=== PATIENT | male | born 1965 | race Caucasian/White ===

== ENCOUNTER 2018-07-17 14:42 | Outpatient (CLI) | payer OTHER ==
--- NOTE | 2018-07-17 15:50 | CT ---
NONCONTRAST CT CERVICAL SPINE: Date: 07/17/18 HISTORY: Acute neck pain and hand numbness. Patient complains of bilateral arm numbness. COMPARISON: None available. TECHNIQUE: Contiguous axial CT images are obtained through the cervical spine from the skull base to the T1-2 le darrick. Sagittal and coronal reformatted images are provided. FINDINGS: No fracture or subluxation is seen involving the cervical spine. There is rotation at the C1-2 articu lation, probably related to patient's head rotated to the left as opposed to rotary subluxation. The interspinous distances are within normal limits. There are prominent facet hypertrophic changes at the C2-3 level with mild left-sided neural foramina l narrowing. There is prominent uncinate process hypertrophy at the C3-4 level resulting in moderate to severe rig ht-sided neural foraminal narrowing due to bony encroachment. Left neural foramen is patent at this l evel. At the C5-6 level, there is loss of intervertebral disc height with prominent osteophytes seen both a nteriorly, as well as posteriorly. Posterior osteophyte formation results in narrowing of the ventral subarachnoid space and suggested flattening of the anterior aspect of the spinal cord. Neural forami na do appear patent at this level. There is left convex curvature of the cervical spine which may be related to positioning. The prevertebral soft tissues are within normal limits. Emphysematous changes are seen in each lung apex. IMPRESSION: 1. Degenerative changes within the cervical spine as described above. 2. No fracture or subluxation involving the cervical spine. POS: GENE
== END 2018-07-17 14:43 | disposition home or self-care (01) ==
LOC: BICCT 14:42
PROVIDERS: ATTEND Family Medicine
DX: M54.2 Cervicalgia (principal); M47.812 Spondylosis without myelopathy or radiculopathy, cervical region
CPT/HCPCS: 72125

== ENCOUNTER 2018-10-29 10:27 | Outpatient (CLI) | payer OTHER ==
--- NOTE | 2018-10-29 13:31 | MRI ---
MRI CERVICAL SPINE WITHOUT CONTRAST: HISTORY: M47.12, cervical spondylosis with myelopathy. COMPARISON: Comparison is made with CT cervical spine of 07/17/2018. FINDINGS: Cerebellar tonsils terminate just below the foramen magnum. No marrow infiltrative process. No cervical adenopathy. Levels are as follows: C2-3: Disk desiccation. There is moderate facet arthropathy on the left and moderate to severe on t he right. There is 1-2 mm of anterolisthesis. Moderate right uncinate process hypertrophy. Moderat e to severe right neural foraminal narrowing. C3-4: Disk desiccation. Circumferential disk-osteophyte complex. Severe right facet arthropathy. Severe right neural foraminal narrowing. Mild left neural foraminal narrowing. C4-5: Circumferential disk-osteophyte complex. Some mild effacement of the ventral CSF space. Ther e is severe right facet arthropathy and mild left facet arthropathy. There is severe right neural fo raminal narrowing. C5-6: There is a large circumferential disk-osteophyte complex. This abuts the cord. The spinal ca nal is n arrowed to approximately 7 mm. Mild left and severe right facet arthropathy. Severe right neural foraminal narrowing. Moderate left neural foraminal narrowing. C6-7: Disk desiccation. Mild height loss. There is left uncinate process hypertrophy. Mild left n eural foraminal narrowing. C7-T1: Mild anterior degenerative disk space height loss. Moderate left and moderate to severe righ t facet arthropathy. Moderate right neural foraminal narrowing. IMPRESSION: Multilevel neural foraminal and spinal canal narrowing as described. POS: CET
== END 2018-10-29 10:28 | disposition home or self-care (01) ==
LOC: BICMRI 10:27
PROVIDERS: ATTEND Neurological Surgery
DX: M47.12 Other spondylosis with myelopathy, cervical region (principal); M48.02 Spinal stenosis, cervical region; M48.03 Spinal stenosis, cervicothoracic region
CPT/HCPCS: 72141

== ENCOUNTER 2019-01-20 13:19 | Outpatient (CLI) | payer OTHER ==
[2019-01-20 14:47] LABS: Mean Corpuscular HGB CONC 35.7 g/dL (32.0-36.0); Mean Corpuscular Volume 89.6 fL (78.0-98.0); Mean Platelet Volume 7.8 fL (7.4-10.4); Platelet Count 223 thou/uL (130-400); RBC Distribution Width 11.8 % (11.5-14.5); Red Blood Cell (RBC) Count 4.67 mill/uL (4.70-6.10); White Blood Cell (WBC) Count 8.9 thou/uL (4.8-10.8)
[2019-01-20 15:04] LABS: Anion Gap 12 mmol/L (10-20); BUN (Urea Nitrogen) 8 mg/dL (8.4-25.7); Calc. Creatinine Clearance 0 mL/min (70-130); Calcium 9.3 mg/dL (7.8-10.44); Carbon Dioxide 26 mmol/L (22-29); Chloride 104 mmol/L (98-107); Estimated GFR-MDRD Greater than 90; Glucose 86 mg/dL (70-105); Potassium 3.8 mmol/L (3.5-5.1); Sodium 138 mmol/L (136-145)
--- NOTE | 2019-01-20 18:26 | EKG ---
Test Reason : Blood Pressure : / mmHG Vent. Rate : 075 BPM Atrial Rate : 075 BPM P-R Int : 144 ms QRS Dur : 098 ms QT Int : 354 ms P-R-T Axes : 035 066 046 degrees QTc Int : 395 ms Normal sinus rhythm Normal ECG When compared with ECG of 10-JAN-2014 18:19, No significant change was found Confirmed by DR. Homar MANZANARES ([id number]) on 01/20/2019 6:26:20 PM Referred By: ALTAGRACIA Confirmed By:DR. Homar MANZANARES
== END 2019-01-20 13:20 | disposition home or self-care (01) ==
LOC: LABBT 13:19
PROVIDERS: ATTEND Neurological Surgery
DX: Z01.818 Encounter for other preprocedural examination (principal); M54.12 Radiculopathy, cervical region
CPT/HCPCS: 80048; 85027; 93005; 93010

== ENCOUNTER 2019-01-25 08:15 | Day surgery (SDC) | payer OTHER ==
[2019-01-20 13:29] VITALS: BMI 31.6
[2019-01-25] MEDS ORDERED: Fentanyl 100 MCG/2 ML VIAL ONE ×4 (09:09→11:46)
[2019-01-25] MEDS ORDERED: Sodium Chloride 0.9% 10 ML ONE (09:51)
[2019-01-25] MEDS ORDERED: Thrombin 5000 UNITS/5 ML VIAL ONE ×2 (09:51→09:54)
[2019-01-25] MEDS ORDERED: SUGAMMADEX SODIUM 200 MG/2 ML VIAL ONE (09:58)
[2019-01-25] MEDS ORDERED: Midazolam HCl 2 mg/2 ml Vial ONE (09:59)
[2019-01-25] MEDS ORDERED: HYDROmorphone 2 MG/ML VIAL ONE ×2 (11:58→12:39)
--- NOTE | 2019-01-25 12:08 | OP ---
DATE OF PROCEDURE: 01/25/2019 DIRECT CUSTOMER SERVICE REPRESENTATIVE: Bernie Watt PA-C PROCEDURES PERFORMED: Anterior cervical diskectomy C5-C6, interbody arthrodesis, intervertebral biomechanical device, local morselized autograft, demineralized bone matrix, anterior titanium instrumentation C5-C6. DESCRIPTION OF PROCEDURE: The patient was brought to the operating room and intubated. He was rolled in the prone position on gel-filled chest rolls. An incision was made exposing C5 and C6 and the level was confirmed by x-ray. We debrided an extreme anterior osteophytes, placed distraction across the disk space and completely decompressed the intervertebral disk. The bony endplates were then decorticated for the purpose of arthrodesis and appropriate-sized intervertebral biomechanical PEEK device was brought into the field. It was filled with demineralized bone matrix, local morselized autograft, and tapped in place securely at C5-C6. Next, an anterior plate was brought into the field and secured at C5 and C6 using two 14-mm screws at each level. The wound was then extensively irrigated and MAC hemostasis was secured and the wound was closed in anatomic layers. Job ID: [id number]
[2019-01-25] MEDS ORDERED: Dexamethasone 4 mg/ml Vial ONE (12:57)
[2019-01-25] MEDS ORDERED: Naloxone HCl 0.4 mg/ml Vial ONE (13:58)
== END 2019-01-25 16:00 | disposition home or self-care (01) ==
LOC: SDC 08:15
PROVIDERS: ATTEND Neurological Surgery
DX: M48.02 Spinal stenosis, cervical region (principal); M54.12 Radiculopathy, cervical region; Z79.899 Other long term (current) drug therapy
CPT/HCPCS: 76000; C1713; C1776; J0690; J1100; J1170; J2250; J2310; J3010; J3490

== ENCOUNTER 2019-02-16 15:58 | Outpatient (CLI) | payer OTHER ==
--- NOTE | 2019-02-16 16:23 | RAD ---
CERVICAL SPINE SERIES THREE VIEWS: 02/16/19 HISTORY: Follow-up surgery. The patient has undergone an anterior cervical fusion. Placement of plate and screws at the C5-6 leve l. Markers of a disc implant are within the confines of the disc level. Some osteophytic change is se en at C4-5 without significant disc narrowing. IMPRESSION: Postoperative changes of the spine. POS: OFF
== END 2019-02-16 15:59 | disposition home or self-care (01) ==
LOC: TBSIIMAG 15:58
PROVIDERS: ATTEND Neurological Surgery
DX: M54.12 Radiculopathy, cervical region (principal); Z98.890 Other specified postprocedural states
CPT/HCPCS: 72040

== ENCOUNTER 2019-04-15 13:52 | Outpatient (CLI) | payer OTHER ==
--- NOTE | 2019-04-15 14:20 | RAD ---
CERVICAL SPINE 3 VIEWS: DATE: 04/15/2019. COMPARISON: 02/16/2019. HISTORY: Reevaluate cervical spine following surgery, stenosis. FINDINGS: Stable anterior diskectomy and fusion hardware at C5-6. Mild stable anterolisthesis at C2-3 measurin g 2 mm. No acute osseous abnormality appreciated. C1-2 articulation appears normal. IMPRESSION: Stable radiographic appearance of the cervical spine as above. POS: GENE
== END 2019-04-15 13:53 | disposition home or self-care (01) ==
LOC: TBSIIMAG 13:52
PROVIDERS: ATTEND Neurological Surgery
DX: M48.02 Spinal stenosis, cervical region (principal); M54.2 Cervicalgia
CPT/HCPCS: 72040

== ENCOUNTER 2019-07-16 15:29 | Observation (INO) | payer OTHER ==
[2019-07-16 16:03] LABS: #Basophils 0.1 thou/uL (0.0-0.2); #Eosinphils 0.3 thou/uL (0.0-0.7); #Lymphocytes 4.5 thou/uL (1.20-3.40); #Monocytes 0.9 thou/uL (0.11-0.59); #Neutrophils 6.9 thou/uL (1.40-6.50); %Basophils 1.1 % (0.0-1.0); %Eosinophils 2.1 % (0.0-10.0); %Lymphocytes 35.4 % (21.0-51.0); %Monocytes 6.8 % (0.0-10.0); %Neutrophils 54.7 % (42.0-75.0); Hemoglobin 15.8 g/dL (14.0-18.0); Mean Corpuscular Hemoglobin 32.8 pg (27.0-31.0); Mean Corpuscular Volume 93.7 fL (78.0-98.0); Mean Platelet Volume 7.5 fL (7.4-10.4); Platelet Count 263 thou/uL (130-400); Red Blood Cell (RBC) Count 4.81 mill/uL (4.70-6.10); White Blood Cell (WBC) Count 12.6 thou/uL (4.8-10.8)
--- NOTE | 2019-07-16 16:12 | RAD ---
TWO VIEWS OF THE CHEST: 07/16/19 COMPARISON: 05/27/04 HISTORY: Chest pain. FINDINGS: Two views of the chest show a normal sized cardiomediastinal silhouette. There is no evidence of cons olidation, mass, or pleural effusion. Degenerative changes and postsurgical changes are seen in the s pine. There is a chronic wedge compression fracture of the lower thoracic vertebral body. IMPRESSION: No evidence of acute cardiopulmonary disease. POS: TPC
[2019-07-16 16:30] LABS: ALT (SGPT) 26 U/L (8-55); AST (SGOT) 18 U/L (5-34); Albumin 4.5 g/dL (3.5-5.0); Alkaline Phosphatase 107 U/L (40-110); Anion Gap 13 mmol/L (10-20); BUN (Urea Nitrogen) 13 mg/dL (8.4-25.7); Bilirubin, Total 0.4 mg/dL (0.2-1.2); CK (CPK) 189 U/L (30-200); Calc. Creatinine Clearance 0 mL/min (70-130); Calcium 9.2 mg/dL (7.8-10.44); Carbon Dioxide 27 mmol/L (22-29); Chloride 104 mmol/L (98-107); Estimated GFR-MDRD 85; Globulin 2.7 g/dL (2.4-3.5); Glucose 100 mg/dL (70-105); Potassium 3.9 mmol/L (3.5-5.1); Protein, Total 7.2 g/dL (6.0-8.3); Sodium 140 mmol/L (136-145)
[2019-07-16] MEDS ORDERED: Nitroglycerin 2% Ointment 1 INCH/1 GM Packet ONE (17:12)
[2019-07-16] MEDS ORDERED: Aspirin Chewable 81 MG TAB ONE (17:12)
--- NOTE | 2019-07-16 18:21 | PDOC.EVN ---
Addendum - Attending - Attending Attestation Date/Time: 07/16/19 [id number] I personally evaluated the patient and discussed the management with Dr. Torres/ Doe. I agree with the History, Examination, Assessment and Plan documented in the H& P with any addition or exceptions noted below. Patient is 54-year-old male here with chest pain. Initial cardiac enzymes are negative. EKG does not show evidence for ACS. Patient will be placed in observation status on telemetry and we will conduct serial enzymes to rule out ACS. Consider stress testing pending further respect or stratification. Further management pending clinical course.
[2019-07-16] MEDS ORDERED: HYDROcodone/Acetaminophen 10/325 mg Tablet ONE (19:14)
--- NOTE | 2019-07-16 19:18 | PDOC.FPRHP ---
- History of Present Illness Chief Complaint: Chest Pain History of Present Illness: Patient is a 54 yo male who presents with complaint of chest pain that has been occurring on/off for the last 1-2 weeks. He states that about 1.5 weeks ago he was at his daughter's house shoveling dirt and started having tight sensation in his chest, his left jaw locked up, and legs went numb. He stated that he rested and felt better after about 15 minutes. The next day he rode a bike with his grandson and the same sx happened again. When he rested the sx went away. He said that as long as he is resting he has no sx but when he becomes active he starts having sx. Yesterday and today his chest pain has also been accompanied by nausea, dizziness, lightheadedness, sweating, and SOB with exertion. He thinks he last had a stress test in 2004 or 2005, at that time had a cath performed but unsure of the results. This testing was all done by Dr. Young at [facility], but he has not seen this cleaner laboratory equipment for "several years". He says back in 2004 he was told he had a CVA or possible OR. ED Course: Given Paradise 10/325 mg, ASA 324 mg, and Nitro patch applied. EKG showed NSR with no ST changes. Initial trop 0.02. CXR with no acute process. - Allergies/Adverse Reactions Allergies Allergy/AdvReac Type Severity Reaction Status Date / Time No Known Allergies Allergy Verified 07/16/19 20:29 - Home Medications Medication Instructions Recorded Confirmed Type Albuterol Sulfate [Proair HFA] 2 puff INH ASDIR PRN 01/20/19 07/16/19 History Atorvastatin Calcium 80 mg PO HS 01/20/19 07/16/19 History Baclofen 1 tab PO DAILY 01/20/19 07/16/19 History Escitalopram Oxalate 20 mg PO QAM 01/20/19 07/16/19 History Ibuprofen 1 tab PO Q8H PRN 01/20/19 07/16/19 History Pregabalin [Lyrica] 1 tab PO TID 01/20/19 07/16/19 History Tamsulosin HCl [Flomax] 2 tab PO HS 01/20/19 07/16/19 History Baclofen 20 mg PO HS 07/16/19 07/16/19 History HYDROcodone/Acetaminophen [Paradise 1 each PO Q6HR 07/16/19 07/16/19 History 10-325 Tablet] Comments: *above home med list not verified* Per clinic records taking: Escitalopram, Tizanidine, Proair, Tamsulosin, Albuterol neb, Atorvastatin, Paradise 10/325, Lyrica - History PMHx: HLD, HTN, Chronic pain 2/2 multiple ortho surgeries & Rzjugzd-Qznvc-Sijqq Disease type 1, BPH, Tubular adenoma, COPD PSHx: cervical spine fusion, right foot multiple repairs, right knee, right hip , bilateral shoulders, tonsillectomy FHx: Mother from Breast Cancer, Father from Suicide, multiple family members with Wxqjtfn-Uwhpk-Jwool, CAD Social: former smoker of 2 ppd x 36 years now down to "occasionally 1 cig/day", smokes tobacco pipe daily. Denies EtOH or other illicit substance use. - Review of Systems General: reports: fatigue. denies: fever/chills, weight/appetite/sleep changes Eyes: denies: vision changes ENT: denies: nasal congestion Respiratory: reports: shortness of breath, exercise intolerance. denies: cough , congestion Cardiovascular: reports: chest pain. denies: palpitation, edema Gastrointestinal: reports: nausea. denies: vomiting, diarrhea, constipation, abdominal pain Genitourinary: reports: incontinence. denies: dysuria Skin: denies: rashes, lesions, jaundice, itching Musculoskeletal: reports: pain, arthritis/arthralgias. denies: swelling Neurological: reports: weakness. denies: numbness Psychological: denies: anxiety, depression - Vital signs BP: 139/84 HR: 83 RR: 18 Tmax: 98.6F Pox: 98% on RA Wt: 88 kg - Physical Exam Constitutional: NAD, awake, alert and oriented, well developed HEENT: normocephalic and atraumatic, EOMI, conjunctiva clear, no scleral icterus , grossly normal vision, grossly normal hearing, MMM Neck: supple, FROM, trachea midline, no JVD, no thyromegaly Chest: no-tender to palpation, no lesions Heart: RRR, normal S1/S2, pulses present, no edema -Heart: soft grade I systolic murmur over RUSB Lungs: no respiratory distress, no rales/rhonchi, no retractions -Lungs: Decreased air movement in all lobes. Occasional expiratory wheezing in bilateral upper lobes. Abdomen: soft, non-tender, bowel sounds present, no masses/distention Musculoskeletal: ROM grossly normal -Musculoskeletal: bilateral feet with Tftztng-Yjwxb-Teedn changes (plantar-flexion deformity) Neurological: no focal deficit, normal sensation Skin: no rash/lesions, good turgor, no jaundice Heme/Lymphatic: no unusual bruising or bleeding Psychiatric: normal mood and affect, intact recent and remote memory FMR H&P: Results - Labs Result Diagrams: 07/16/19 15:46 07/16/19 15:46 Lab results: WBC 12.6 thou/uL (4.8-10.8) H 07/16/19 15:46 Hgb 15.8 g/dL (14.0-18.0) 07/16/19 15:46 Hct 45.1 % (42.0-52.0) 07/16/19 15:46 MCV 93.7 fL (78.0-98.0) 07/16/19 15:46 Plt Count 263 thou/uL (130-400) 07/16/19 15:46 Neutrophils % 54.7 % (42.0-75.0) 07/16/19 15:46 Sodium 140 mmol/L (136-145) 07/16/19 15:46 Potassium 3.9 mmol/L (3.5-5.1) 07/16/19 15:46 Chloride 104 mmol/L (98-107) 07/16/19 15:46 Carbon Dioxide 27 mmol/L (22-29) 07/16/19 15:46 BUN 13 mg/dL (8.4-25.7) 07/16/19 15:46 Creatinine 0.93 mg/dL (0.7-1.3) 07/16/19 15:46 Glucose 100 mg/dL (70-105) 07/16/19 15:46 Calcium 9.2 mg/dL (7.8-10.44) 07/16/19 15:46 Total Bilirubin 0.4 mg/dL (0.2-1.2) 07/16/19 15:46 AST 18 U/L (5-34) 07/16/19 15:46 ALT 26 U/L (8-55) 07/16/19 15:46 Alkaline Phosphatase 107 U/L (40-110) 07/16/19 15:46 Creatine Kinase 189 U/L (30-200) 07/16/19 15:46 Serum Total Protein 7.2 g/dL (6.0-8.3) 07/16/19 15:46 Albumin 4.5 g/dL (3.5-5.0) 07/16/19 15:46 FMR H&P: A/P - Problem List (1) Atypical chest pain Current Visit: Yes Status: Acute Code(s): R07.89 - OTHER CHEST PAIN (2) Hyperlipidemia Current Visit: Yes Status: Acute Code(s): E78.5 - HYPERLIPIDEMIA, UNSPECIFIED Qualifiers: Hyperlipidemia type: mixed hyperlipidemia Qualified Code(s): E78.2 - Mixed hyperlipidemia (3) Chronic pain Current Visit: Yes Status: Acute Code(s): G89.29 - OTHER CHRONIC PAIN Qualifiers: Chronic pain type: other chronic pain Qualified Code(s): G89.29 - Other chronic pain (4) Ywaecjl-Bmhmz-Pdwbm disease Current Visit: Yes Status: Acute (5) COPD (chronic obstructive pulmonary disease) Current Visit: Yes Status: Acute Qualifiers: COPD type: unspecified COPD Qualified Code(s): J44.9 - Chronic obstructive pulmonary disease, unspecified - Plan Patient is a 54 yo male who presents with atypical chest pain: #Atypical Chest Pain -HEART score of 5: highly suspicious history with risk factors for age >45, 3+ risk factors -plan for stress test in the AM -risk stratification labs: TSH, A1C, FLP, Mag, Phos -check CBC, CMP in AM -hold NSAIDs -vitals q4hr, monitor I/Os -place on telemetry monitoring #Jpygizi-Wkdlp-Nwrtc Disease #Chronic Pain -continue pain control with home meds #Hx of COPD -continue home meds #HLD -check FLP -continue home Atorvastatin #Tobacco Abuse -smoking cessation counseling ordered #BPH -continue home meds Diet: NPO at midnight VTE: Lovenox Code status: FULL [facility]: Stable, admit to obs on telemetry unit. Plan for stress test in AM. Anticipate LOS <48 hrs. FMR H&P: Upper Level - Plan Date/Time: 07/16/191914 IGabriela DO, have evaluated this patient and agree with findings/plan as outlined by internal combustion engineer resident. Pertinent changes/additions are listed here. Pt is a 54 yo M with PMH of HLD, Tobacco Abuse presenting for L substernal CP that feels "as if someone punched him", onset 2 weeks ago when he was digging in the yard, relieved by rest. This has occurred several times since then, most recent was today while he was pushing a four-hickey. Again pain resolved with rest. He reports prior stress and cath about 10yrs ago but cannot recall results or if any stents were placed. He does not remember taking any anticoagulation. When the pain comes on, he reports associated dizziness, SOB, n/v, and diaphoresis, and radiation of pain to jaw and R arm. VS: 139/84, P83, R18, T98.6, O298%RA PE: Gen: well developed, NAD HEENT: Moist MM, no LAD, no JVD Heart: RRR, no murmurs or extra sounds. Distal pulses 2+ Lungs: distant lung sounds, no wheezing. 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 -plan for stress in AM -risk stratify with FLP, TSH -hold NSAIDs, NPO at TX -used to see Dr. Young but needs new cleaner laboratory equipment outpatient HLD: -FLP pending -continue high int statin Tobacco Abuse: -encourage cessation Charcot Isabelle Tooth with Chronic Pain: -restart home pain meds with exception of NSAID COPD: -home meds BPH: -home meds DVT Ppx: Lovenox GI Ppx: none Dispo: stable, LOS<48h Code Status: Full
[2019-07-16] MEDS ORDERED: Nitroglycerin 0.4 MG TAB (25 Tab Bottle) PO PRN (19:33)
[2019-07-16] MEDS ORDERED: Ondansetron PF 4 MG/2 ML Vial IVP PRN (19:33)
[2019-07-16] MEDS ORDERED: Calcium Carbonate 500 MG ChewTAB PO PRN (19:33)
[2019-07-16] MEDS ORDERED: Senokot S 8.6-50 MG TAB PO PRN (19:33)
[2019-07-16] MEDS ORDERED: Ondansetron ODT 4 MG TAB PO PRN (19:33)
[2019-07-16 20:08] LABS: Hemoglobin A1c 5.4 % (4.0-6.0)
[2019-07-16 20:08] LABS: Troponin I Less than 0.010 ng/mL (< 0.028)
[2019-07-16 20:21] LABS: Magnesium 2.2 mg/dL (1.6-2.6); Phosphorus 3.5 mg/dL (2.3-4.7)
[2019-07-16] MEDS ORDERED: PROVENTIL INHALER 6.7 G (200 INHALATIONS) INH PRN (20:35)
[2019-07-16 20:41] VITALS: BMI 28.6
[2019-07-16] MEDS ORDERED: Pregabalin 50 MG CAP PO SCH (21:00)
[2019-07-16] MEDS ORDERED: Atorvastatin Calcium 40 MG TAB PO SCH (21:00)
[2019-07-16] MEDS ORDERED: Tamsulosin HCl 0.4 MG CAP PO SCH (21:00)
[2019-07-16] MEDS ORDERED: Baclofen 10 MG TAB PO SCH ×2 (21:00→22:15)
[2019-07-16 22:55] LABS: Troponin I 0.011 ng/mL (< 0.028)
[2019-07-16] MEDS: HYDROcodone/Acetaminophen 10/325 mg Tablet PO SCH (23:47)
[2019-07-16] MEDS: Pregabalin 50 MG CAP PO SCH (23:49)
[2019-07-16] MEDS ORDERED: HYDROcodone/Acetaminophen 10/325 mg Tablet PO SCH (23:59)
[2019-07-17 05:34] LABS: #Eosinphils 0.2 thou/uL (0.0-0.7); #Lymphocytes 4.1 thou/uL (1.20-3.40); #Monocytes 0.6 thou/uL (0.11-0.59); #Neutrophils 5.1 thou/uL (1.40-6.50); %Basophils 0.3 % (0.0-1.0); %Eosinophils 2.3 % (0.0-10.0); %Lymphocytes 40.4 % (21.0-51.0); %Monocytes 6.2 % (0.0-10.0); %Neutrophils 50.8 % (42.0-75.0); Hemoglobin 14.1 g/dL (14.0-18.0); Mean Corpuscular HGB CONC 34.5 g/dL (32.0-36.0); Mean Corpuscular Hemoglobin 32.1 pg (27.0-31.0); Mean Corpuscular Volume 92.8 fL (78.0-98.0); Mean Platelet Volume 7.4 fL (7.4-10.4); Platelet Count 212 thou/uL (130-400); RBC Distribution Width 12.1 % (11.5-14.5); Red Blood Cell (RBC) Count 4.39 mill/uL (4.70-6.10); White Blood Cell (WBC) Count 10.1 thou/uL (4.8-10.8)
[2019-07-17] MEDS: HYDROcodone/Acetaminophen 10/325 mg Tablet PO SCH ×2 (05:45→12:32)
[2019-07-17] MEDS ORDERED: Escitalopram Oxalate 20 mg Tablet PO SCH (06:00)
[2019-07-17 06:01] LABS: ALT (SGPT) 20 U/L (8-55); AST (SGOT) 15 U/L (5-34); Albumin 3.9 g/dL (3.5-5.0); Alkaline Phosphatase 88 U/L (40-110); Anion Gap 9 mmol/L (10-20); BUN (Urea Nitrogen) 14 mg/dL (8.4-25.7); Bilirubin, Total 0.5 mg/dL (0.2-1.2); Calc. Creatinine Clearance 127 mL/min (70-130); Calcium 8.6 mg/dL (7.8-10.44); Carbon Dioxide 28 mmol/L (22-29); Cardiac Risk 3.9 (Less than 4.5); Chloride 104 mmol/L (98-107); Cholesterol 158 mg/dl (< 200 Desired); Estimated GFR-MDRD Greater than 90; Globulin 2.5 g/dL (2.4-3.5); Glucose 99 mg/dL (70-105); HDL Cholesterol 41 mg/dL (>60 Neg Risk); LDL Cholesterol, Calculated 87 mg/dL; Protein, Total 6.4 g/dL (6.0-8.3); Sodium 137 mmol/L (136-145); Triglycerides 149 mg/dL (Less than 150)
--- NOTE | 2019-07-17 06:26 | PDOC.FM ---
- Subjective Subjective: pt resting comfortably in bed, has not had any cp since admission. denies sob - Objective Vital Signs & Weight: Vital Signs (12 hours) Temp Pulse Resp BP BP Pulse Ox 07/17/19 02:38 97.8 F 72 17 123/61 95 07/16/19 19:47 98.1 F 74 18 108/69 96 Weight Weight 78.018 kg Result Diagrams: 07/17/19 05:05 07/17/19 05:05 Phys Exam - Physical Examination Constitutional: NAD HEENT: moist MMs Neck: supple Gastrointestinal: no distention Musculoskeletal: no edema Neurological: moves all 4 limbs Psychiatric: normal affect Skin: no rash Dx/Plan (1) Atypical chest pain Code(s): R07.89 - OTHER CHEST PAIN Status: Acute (2) COPD (chronic obstructive pulmonary disease) Status: Acute Qualifiers: COPD type: unspecified COPD Qualified Code(s): J44.9 - Chronic obstructive pulmonary disease, unspecified (3) Pfwtfuh-Nrmmd-Jzbzx disease Status: Acute (4) Chronic pain Code(s): G89.29 - OTHER CHRONIC PAIN Status: Acute Qualifiers: Chronic pain type: other chronic pain Qualified Code(s): G89.29 - Other chronic pain (5) Hyperlipidemia Code(s): E78.5 - HYPERLIPIDEMIA, UNSPECIFIED Status: Acute Qualifiers: Hyperlipidemia type: mixed hyperlipidemia Qualified Code(s): E78.2 - Mixed hyperlipidemia - Plan Plan: Stable angina -plan for stress - FLP, TSH wnl HLD: -continue high int statin Tobacco Abuse: -encourage cessation Charcot Isabelle Tooth with Chronic Pain: -restart home pain meds with exception of NSAID COPD: -home meds BPH: -home meds DVT Ppx: Lovenox GI Ppx: none Dispo: pending stress results Code Status: Full Addendum - Attending - Attending Attestation Date/Time: 07/17/19 6635 I personally evaluated the patient and discussed the management with Dr. Esqueda. I agree with the History, Examination, Assessment and Plan documented above with any addition or exceptions noted below. Patient ambulating well in the hallways this morning. Denies pain. CE negative for ACS. Stress test today and likely d/c after that results unless abnormal.
[2019-07-17] MEDS: Pregabalin 50 MG CAP PO SCH (08:19)
[2019-07-17] MEDS ORDERED: Enoxaparin Sodium 40 MG/0.4 ML SYRINGE SC SCH (09:00)
[2019-07-17] MEDS ORDERED: Baclofen 10 MG TAB PO SCH ×4 (10:00→21:00)
--- NOTE | 2019-07-17 12:13 | NM ---
EXAM: CARDIAC SPECT HISTORY: Chest pain TECHNIQUE: A myocardial perfusion scan was performed using the single isotope 1 day protocol with zaid hnetium 99m sestamibi. [10 mCi] was injected intravenously for the rest exam followed by 30 mCi for the stress study. Pharmacologic stress with Lexiscan was monitored and interpreted by Dr. Richardson FINDINGS: Homogeneous tracer distribution is seen in the myocardial segments on stress and rest image s without fixed or reversible defects. Gated SPECT LVEF: 65% Wall motion exam: Normal IMPRESSION: Normal myocardial perfusion scan
[2019-07-17 12:40] VITALS: BP 137/87; TEMP 97.3
[2019-07-17] MEDS ORDERED: Regadenoson 0.4 MG/5 ML SYRINGE ONE (13:08)
[2019-07-17] MEDS ORDERED: Tamsulosin HCl 0.4 MG CAP PO SCH (22:00)
[2019-07-17] MEDS ORDERED: Atorvastatin Calcium 40 MG TAB PO SCH (22:00)
--- NOTE | 2019-07-31 13:26 | EKG ---
Test Reason : Blood Pressure : / mmHG Vent. Rate : 092 BPM Atrial Rate : 092 BPM P-R Int : 144 ms QRS Dur : 094 ms QT Int : 340 ms P-R-T Axes : 053 058 046 degrees QTc Int : 420 ms Normal sinus rhythm Minimal voltage criteria for LVH, may be normal variant Borderline ECG Confirmed by JANIS HUYNH DO ([id number]), editor in chief newspaper ANGEL PORTILLO ([id number]) on 07/31/2019 1:26:29 PM Referred By: Confirmed By:JANIS HUYNH DO
== END 2019-07-17 15:30 | disposition home or self-care (01) ==
LOC: ERS 15:29 → 2SW 19:46
PROVIDERS: ADMIT Student in an Organized Health Care Education/Training Program; ATTEND Student in an Organized Health Care Education/Training Program
DX: R07.89 Other chest pain (principal); J44.9 Chronic obstructive pulmonary disease, unspecified; G60.0 Hereditary motor and sensory neuropathy; G89.29 Other chronic pain; M54.9 Dorsalgia, unspecified; E78.5 Hyperlipidemia, unspecified; N40.0 Benign prostatic hyperplasia without lower urinary tract symptoms; I10 Essential (primary) hypertension; Z79.899 Other long term (current) drug therapy; Z87.891 Personal history of nicotine dependence; Z98.1 Arthrodesis status; Z90.89 Acquired absence of other organs; Z98.890 Other specified postprocedural states
CPT/HCPCS: 36415; 71046; 78452; 80053; 80061; 82550; 83036; 83735; 84100; 84443; 84484; 85025; 93005; 93017; 94760; A9500; J1650; J2785

== ENCOUNTER 2019-10-14 14:25 | Outpatient (CLI) | payer OTHER ==
--- NOTE | 2019-10-14 14:50 | RAD ---
EXAM: XR Cerv Sp Ap Lat STANDARD PROVIDED CLINICAL HISTORY: Cervical spondylitic cord compression. Follow-up neck surgery performed in 2019. COMPARISON: 04/15/2019 FINDINGS: Postoperative changes related to anterior cervical fusion are again seen with anterior plate and scre ws again transfixing the C5-6 level with intradiscal prosthesis noted in place. No hardware complication is seen. Cervicothoracic junction is obscured from view. C1-C7 demonstrates no fracture or subluxation. Interspinous distances are within normal limits. Osteophytes are seen anteriorly at the C4-5 level. Prevertebral soft tissues are within normal limits. Linear densities overlie the neck on the right adjacent to the cervical spine which may actually be related to overlying artifact in addition to vascular calcifications. IMPRESSION: Stable postoperative changes related to anterior cervical fusion at the C5-6 level.
== END 2019-10-14 14:26 | disposition home or self-care (01) ==
LOC: TBSIIMAG 14:25
PROVIDERS: ATTEND Neurological Surgery
DX: G95.20 Unspecified cord compression (principal); Z98.1 Arthrodesis status
CPT/HCPCS: 72040

== ENCOUNTER 2019-11-09 10:29 | Outpatient (CLI) | payer OTHER ==
--- NOTE | 2019-11-09 11:31 | MRI ---
MRI Cervical spine without contrast: HISTORY: Neck pain. Previous cervical spine surgery. Cervical spondylosis with myelopathy. COMPARISON: 10/29/2018 FINDINGS: The craniocervical junction is unremarkable. No significant cord signal abnormality. Paravertebral soft tissues have a normal appearance and normal signal intensity. Interval postoperative changes are present with metallic susceptibility artifact seen at the C5-6 lev el related to anterior cervical fusion. C1-2:No significant stenosis. C2-3: Facet degenerative changes are present at this level greater on the right. Mild disc osteophyte complex is present with uncinate process hypertrophy. Left neural foramen is patent, but there is atoo-sj-ezqsmfld right-sided neural foraminal narrowing. No significant central canal narrowing is pr esent. Findings are similar to prior exam. C3-4: Facet degenerative changes are present. Mild disc osteophyte complex is noted. There is no sign ificant central canal narrowing. Left neural foramen is patent, but there is severe right-sided neural foraminal narrowing similar to prior exam. C4-5: Mild disc osteophyte complex is present with facet hypertrophic changes are present on the righ t and to a much lesser extent on the left. Left neural foramen is patent, but there is moderate to severe right neural foraminal narrowing. C5-6: Interval postoperative changes related to anterior fusion. Susceptibility artifact related to i ntradiscal prosthesis at this level is present. Disc osteophyte complex persists at this level which effaces the ventral subarachnoid space and results in mild flattening of the anterior aspect of the spinal cord. Moderate bilateral neural foraminal narrowing is present greater on the right. C6-7: Disc osteophyte complex is present with mild effacement of ventral subarachnoid space without s ignificant encroachment on the spinal cord. Minimal left-sided neural foraminal narrowing is present. The right neural foramen is patent. C7-T1: Disc osteophyte complex is present which narrows the ventral subarachnoid space. Moderate righ t-sided neural foraminal narrowing is seen. Facet hypertrophic changes are identified. Left neural foramen appears patent. IMPRESSION: 1. Postoperative and degenerative changes of the cervical spine. Multilevel neural foraminal narrowin g is present not significantly changed from prior exam.
== END 2019-11-09 10:30 | disposition home or self-care (01) ==
LOC: TBSIIMAG 10:29
PROVIDERS: ATTEND Neurological Surgery
DX: M47.12 Other spondylosis with myelopathy, cervical region (principal); M48.02 Spinal stenosis, cervical region; M48.03 Spinal stenosis, cervicothoracic region; Z98.1 Arthrodesis status
CPT/HCPCS: 72141

== ENCOUNTER 2020-06-06 16:36 | Emergency (ER) | payer OTHER ==
[2020-06-06] MEDS ORDERED: Morphine 4 MG/ML VIAL ONE (17:27)
[2020-06-06] MEDS ORDERED: Ondansetron ODT 4 MG TAB ONE (17:27)
--- NOTE | 2020-06-06 18:01 | RAD ---
RIGHT CLAVICLE: 06/06/20 Two views. HISTORY: Injury with pain. Right clavicle appears intact. AC joint normally aligned. There is a lucency seen in the proximal humerus at the greater tuberosity. This appears stable when c ompared to exam of 12/19/16 and therefore would represent a benign finding. IMPRESSION: No acute process. POS: AGW
--- NOTE | 2020-06-06 18:03 | RAD ---
RIGHT RIBS: 06/06/20 Four views. INDICATIONS: Fall with injury to ribs. Rib pain. FINDINGS: PA chest and views of the right ribs. Total of four images. FINDINGS: The lungs are clear on the PA chest exam. Right ribs appear intact. No rib fracture identified. Right shoulder appears unremarkable. IMPRESSION: No acute abnormality identified. POS: AGW
== END 2020-06-06 18:40 | disposition home or self-care (01) ==
LOC: ERS 16:36
DX: S40.011A Contusion of right shoulder, initial encounter (principal); E78.5 Hyperlipidemia, unspecified; E78.00 Pure hypercholesterolemia, unspecified; I25.2 Old myocardial infarction; F17.210 Nicotine dependence, cigarettes, uncomplicated; Z86.73 Personal history of transient ischemic attack (TIA), and cerebral infarction without residual deficits; Z79.4 Long term (current) use of insulin; Z79.899 Other long term (current) drug therapy; W18.2XXA Fall in (into) shower or empty bathtub, initial encounter
CPT/HCPCS: 96372; J2270; Q0162

== ENCOUNTER 2020-06-14 12:46 | Outpatient (CLI) | payer OTHER ==
[~2020-06-14 12:46] MED LIST: Magnevist 469MG/ML 20 ML VIAL ONE
[2020-06-14] MEDS ORDERED: Iopamidol 300 61% 50 ML VIAL FS ONE (13:15)
[2020-06-14] MEDS ORDERED: Lidocaine 1% PF 10 ML AMP ONE (13:15)
[2020-06-14] MEDS ORDERED: Gadobenate Dimeglumine 529 MG/1 ML (20ML VIAL) ONE (13:15)
[2020-06-14] MEDS ORDERED: EPINEPHrine 1 MG/ML AMP ONE (13:15)
--- NOTE | 2020-06-14 14:27 | RAD ---
RIGHT SHOULDER ARTHROGRAM: HISTORY: Right shoulder pain. Multiple right shoulder surgeries. FINDINGS: Three-view stocking inspector right shoulder radiograph demonstrates preserved joint space. No fracture or disloca tion. Total of 13 cc of the contrast admixture was administered. No immediate or postprocedural complicatio ns. EXPOSURE: 0.7 minutes, 114.54 mGy/m2. TECHNIQUE: Consent was obtained from a right shoulder arthrogram. Right shoulder was prepped and draped in a lew rile fashion. 1% lidocaine, buffered with sodium or, was used for local anesthesia. Under fluoroscopic guidance, 22-gauge spinal needle was advanced into the joint space. A total of 13 cc of the contrast admixture was administered. Patient tolerated the procedure well. No immediate or postprocedural complications. IMPRESSION: Successful right shoulder arthrogram with fluoroscopic guidance. Transcribed Date/Time: 06/14/2020 2:40 PM
--- NOTE | 2020-06-14 15:02 | MRI ---
MR of the right shoulder with intra-articular contrast INDICATION: Right shoulder pain. TECHNIQUE: Sagittal, axial, coronal FS T1 and coronal T2 fat sat and PD fat sat were obtained of the right shoulder. ABER images were also obtained Please see the separately dictated shoulder arthrogram for details concerning the injection technique. COMPARISON: Right shoulder arthrogram radiographs dated every 2020 FINDINGS: Motion artifact limits image detail. Rotator cuff: There is a full-thickness tear of the supraspinatus at the footprint with retraction of the tendon 1.8 cm. There is a full-thickness partial width extension into the anterior to mid infraspinatus at the footprint best seen on image 5 of series 7. The teres minor and subscapularis re main intact. Glenohumeral joint: Articular cartilage is intact. Glenoid labrum: Intact Biceps tendon and biceps anchor: The biceps tendon is medially subluxed within the superior aspect of the bicipital groove. The full-thickness supraspinatus tendon does not appear to extend into the rotator interval. Acromion clavicular joint: normal Subacromial subdeltoid space: There is contrast and fluid distention of the subacromial subdeltoid bu rsa. Axillary region: No lymphadenopathy. Surrounding shoulder musculature: Normal. No evidence of atrophy or strain. IMPRESSION: Large full-thickness tear of the supraspinatus with full-thickness, partial width extension into the anterior to mid infraspinatus at the footprint. The extent of the tear likely induces some instability at the level of the rotator interval with medial subluxation of the proximal long head of the biceps tendon within the superior aspect of the bicipital groove; however, there is no overt tear extension into the rotator interval components.
== END 2020-06-14 12:47 | disposition home or self-care (01) ==
LOC: RAD 12:46
PROVIDERS: ATTEND Student in an Organized Health Care Education/Training Program
DX: M25.511 Pain in right shoulder (principal); M75.101 Unspecified rotator cuff tear or rupture of right shoulder, not specified as traumatic
CPT/HCPCS: 23350; A9577; A9579; J0171; J2001; Q9967

== ENCOUNTER 2020-11-07 07:39 | Day surgery (SDC) | payer OTHER ==
[2020-11-06 15:03] VITALS: BMI 31.6
[2020-11-07] MEDS ORDERED: Fentanyl 100 MCG/2 ML VIAL ONE (08:06)
[2020-11-07] MEDS ORDERED: Bacitracin Zinc Ointment 30 gm TUBE ONE (08:10)
[2020-11-07] MEDS ORDERED: Betamet Acet/Betamet Na Ph 30 MG/5 ML VIAL ONE (08:10)
[2020-11-07] MEDS ORDERED: Bupivacaine PF 0.5% 30 ML VIAL ONE (08:10)
[2020-11-07] MEDS ORDERED: Lidocaine 1% PF 5 ML VIAL ONE (08:36)
[2020-11-07] MEDS ORDERED: PROPOFOL 200 MG/20 ML VIAL ONE (08:36)
[2020-11-07] MEDS ORDERED: Dexamethasone 20 MG/5 ML VIAL ONE (08:36)
[2020-11-07] MEDS ORDERED: Ondansetron PF 4 MG/2 ML Vial ONE (08:36)
[2020-11-07 08:48] LABS: #Basophils 0.1 thou/uL (0.0-0.2); #Eosinphils 0.1 thou/uL (0.0-0.7); #Lymphocytes 3.8 thou/uL (1.20-3.40); #Monocytes 0.6 thou/uL (0.11-0.59); #Neutrophils 3.9 thou/uL (1.40-6.50); %Basophils 1.6 % (0.0-1.0); %Eosinophils 1.6 % (0.0-10.0); %Lymphocytes 44.3 % (21.0-51.0); %Monocytes 7.1 % (0.0-10.0); %Neutrophils 45.3 % (42.0-75.0); Mean Corpuscular HGB CONC 35.9 g/dL (32.0-36.0); Mean Corpuscular Hemoglobin 32.5 pg (27.0-31.0); Mean Corpuscular Volume 90.6 fL (78.0-98.0); Mean Platelet Volume 7.5 fL (7.4-10.4); Platelet Count 238 thou/uL (130-400); RBC Distribution Width 11.4 % (11.5-14.5); White Blood Cell (WBC) Count 8.5 thou/uL (4.8-10.8)
[2020-11-07] MEDS ORDERED: Ketorolac Tromethamine 30 MG/ML VIAL ONE (09:23)
[2020-11-07] MEDS ORDERED: HYDROcodone/Acetaminophen 5/325 mg Tablet ONE (10:13)
== END 2020-11-07 10:22 | disposition home or self-care (01) ==
LOC: SDC 07:39
PROVIDERS: ATTEND Orthopaedic Surgery Hand Surgery
PROC: 0LN70ZZ Release Right Hand Tendon, Open Approach (ICD-10-PCS; principal; 2020-11-07)
DX: M65.331 Trigger finger, right middle finger (principal); G43.909 Migraine, unspecified, not intractable, without status migrainosus; G60.0 Hereditary motor and sensory neuropathy; F17.210 Nicotine dependence, cigarettes, uncomplicated; Z91.038 Other insect allergy status; Z79.891 Long term (current) use of opiate analgesic; Z79.899 Other long term (current) drug therapy
CPT/HCPCS: 85025; J0690; J0702; J1100; J1885; J2405; J2704; J3010; S0020

== ENCOUNTER 2021-02-05 23:11 | Observation (INO) | payer OTHER ==
[2021-02-05] MEDS ORDERED: Ondansetron PF 4 MG/2 ML Vial ONE (23:42)
[2021-02-05] MEDS ORDERED: Morphine 4 MG/ML VIAL ONE (23:42)
[2021-02-06] MEDS ORDERED: Boostrix 0.5 ML (Tdap) VIAL ONE (00:09)
[2021-02-06] MEDS ORDERED: ceFAZolin 2 GM/DEX 5% 100 ML BAG ONE ×2 (00:09→12:01)
[2021-02-06 00:19] LABS: #Basophils 0.1 thou/uL (0.0-0.2); #Eosinphils 0.1 thou/uL (0.0-0.7); #Lymphocytes 3.7 thou/uL (1.20-3.40); #Monocytes 1.1 thou/uL (0.11-0.59); #Neutrophils 9.1 thou/uL (1.40-6.50); %Basophils 0.5 % (0.0-1.0); %Eosinophils 0.9 % (0.0-10.0); %Lymphocytes 26.2 % (21.0-51.0); %Monocytes 7.7 % (0.0-10.0); %Neutrophils 64.6 % (42.0-75.0); Hemoglobin 14.4 g/dL (14.0-18.0); Mean Corpuscular HGB CONC 34.9 g/dL (32.0-36.0); Mean Corpuscular Hemoglobin 31.2 pg (27.0-31.0); Mean Corpuscular Volume 89.5 fL (78.0-98.0); Platelet Count 286 thou/uL (130-400); RBC Distribution Width 11.8 % (11.5-14.5)
[2021-02-06] MEDS ORDERED: Morphine 4 MG/ML VIAL ONE (00:30)
[2021-02-06 00:33] LABS: ALT (SGPT) 25 U/L (8-55); AST (SGOT) 24 U/L (5-34); Albumin 4.1 g/dL (3.5-5.0); Alkaline Phosphatase 116 U/L (40-110); Anion Gap 11 mmol/L (10-20); BUN (Urea Nitrogen) 15 mg/dL (8.4-25.7); Bilirubin, Total 0.4 mg/dL (0.2-1.2); Calc. Creatinine Clearance 0 mL/min (70-130); Calcium 9.2 mg/dL (7.8-10.44); Carbon Dioxide 27 mmol/L (22-29); Chloride 101 mmol/L (98-107); Globulin 2.9 g/dL (2.4-3.5); Glucose 104 mg/dL (70-105); Sodium 135 mmol/L (136-145)
[2021-02-06] MEDS ORDERED: Nicotine 14 MG PATCH ONE (00:59)
[2021-02-06 01:42] VITALS: BMI 29.5
[2021-02-06 02:06] LABS: SARS-CoV-2 NAA Rapid Test Not Detected (NotDetected)
[2021-02-06] MEDS: Morphine 4 MG/ML VIAL SLOW IVP PRN ×3 (02:50→08:11)
[2021-02-06] MEDS ORDERED: ceFAZolin Sodium/D5W 2 GM in Premix Bag 1 BAG IVPB SCH ×2 (06:00→09:30)
[2021-02-06] MEDS ORDERED: Non-Formulary Item 1 EACH (Albuterol Sulfate [Proair Hfa] 108 Hfa.Aer.Ad) INH PRN (08:21)
[2021-02-06] MEDS ORDERED: PREGABALIN PO PRN (08:21)
[2021-02-06] MEDS ORDERED: Albuterol 200 PUFF (6.7GM INHALER) INH PRN (08:43)
[2021-02-06] MEDS ORDERED: Pregabalin 50 MG CAP PO PRN (08:45)
[2021-02-06] MEDS ORDERED: Escitalopram Oxalate 20 mg Tablet PO SCH (09:00)
[2021-02-06] MEDS ORDERED: CEFAZOLIN 2 GM in Premix Bag 1 BAG IVPB SCH (09:00)
[2021-02-06] MEDS: Baclofen 10 MG TAB PO SCH ×2 (10:23→14:45)
[2021-02-06] MEDS ORDERED: Fentanyl 100 MCG/2 ML VIAL ONE ×2 (11:45→12:34)
[2021-02-06] MEDS ORDERED: Dexamethasone 20 MG/5 ML VIAL ONE (12:55)
[2021-02-06] MEDS ORDERED: ePHEDrine 50 MG/ML VIAL ONE (12:55)
[2021-02-06] MEDS ORDERED: Lidocaine 1% PF 5 ML VIAL ONE (12:55)
[2021-02-06] MEDS ORDERED: Ondansetron PF 4 MG/2 ML Vial ONE (12:55)
[2021-02-06] MEDS ORDERED: PHENYLEPHRINE-NS 100 MCG/ML 10 ML SYRINGE ONE (12:55)
[2021-02-06] MEDS ORDERED: Succinylcholine 200 MG/10 ml SYRINGE FS ONE (12:55)
[2021-02-06] MEDS ORDERED: PROPOFOL 200 MG/20 ML VIAL ONE (12:55)
[2021-02-06 14:55] VITALS: BP 118/74; TEMP 97.7
[2021-02-06] MEDS ORDERED: HYDROcodone/Acetaminophen 10/325 mg Tablet PO PRN (15:39)
[2021-02-06] MEDS ORDERED: Tamsulosin HCl 0.4 MG CAP PO SCH ×2 (21:00)
[2021-02-06] MEDS ORDERED: Atorvastatin Calcium 40 MG TAB PO SCH (21:00)
[2021-02-06] MEDS ORDERED: Non-Formulary Item 1 EACH (Atorvastatin Calcium [Atorvastatin Calcium] 80 MG Tablet) PO SCH (21:00)
== END 2021-02-06 16:18 | disposition home or self-care (01) ==
LOC: ERS 23:11 → SURG A 02-06 00:21
PROVIDERS: ADMIT Orthopaedic Surgery; ATTEND Orthopaedic Surgery
PROC: 0Y6P0Z3 Detachment at Right 1st Toe, Low, Open Approach (ICD-10-PCS; principal; 2021-02-06)
DX: S98.142A Partial traumatic amputation of one left lesser toe, initial encounter (principal); E78.5 Hyperlipidemia, unspecified; G89.29 Other chronic pain; F17.210 Nicotine dependence, cigarettes, uncomplicated; I25.2 Old myocardial infarction; E78.00 Pure hypercholesterolemia, unspecified; E66.9 Obesity, unspecified; Z68.29 Body mass index [BMI] 29.0-29.9, adult; Z86.73 Personal history of transient ischemic attack (TIA), and cerebral infarction without residual deficits; Z79.899 Other long term (current) drug therapy; Z91.038 Other insect allergy status; Z98.1 Arthrodesis status; Z98.890 Other specified postprocedural states; Z20.822 Contact with and (suspected) exposure to COVID-19; W20.8XXA Other cause of strike by thrown, projected or falling object, initial encounter
CPT/HCPCS: 80053; 85025; 90471; 90715; 96365; 96375; 96376; G0378; J1100; J2270; J2405; J2704; J3010; J3490; U0002

== ENCOUNTER 2021-08-15 12:50 | Outpatient (CLI) | payer OTHER | END 2021-08-15 12:51 | disposition home or self-care (01) | LOC: SCSMRI 12:50 | PROVIDERS: ATTEND Anesthesiology | DX: M54.2 Cervicalgia (principal); M47.812 Spondylosis without myelopathy or radiculopathy, cervical region; Z98.890 Other specified postprocedural states | CPT/HCPCS: 72156 ==

== ENCOUNTER → 2021-10-11 | Day surgery (SDC) | payer OTHER ==
[2021-10-10 14:42] VITALS: BMI 30.7
[~2021-10-11] MED LIST changes: +Iopamidol-M 300 61% 15 ML VIAL ONE; -Magnevist 469MG/ML 20 ML VIAL ONE
[2021-10-11 08:18] VITALS: BP 128/97; TEMP 96.9
== END ==
LOC: RAD 07:11
PROVIDERS: ATTEND Neurological Surgery
PROC: B01B1ZZ Fluoroscopy of Spinal Cord using Low Osmolar Contrast (ICD-10-PCS; principal; 2021-10-11)
DX: M54.12 Radiculopathy, cervical region (principal); Z88.8 Allergy status to other drugs, medicaments and biological substances; Z91.038 Other insect allergy status
CPT/HCPCS: 62302; 72126

== ENCOUNTER 2021-11-27 09:28 | Outpatient (CLI) | payer OTHER | END 2021-11-27 09:29 | disposition home or self-care (01) | LOC: TBSIIMAG 09:28 | PROVIDERS: ATTEND Neurological Surgery | DX: M47.22 Other spondylosis with radiculopathy, cervical region (principal) | CPT/HCPCS: 72040 ==

== ENCOUNTER 2022-01-16 11:00 | Inpatient (IN) | payer OTHER ==
[2022-02-04] MEDS ORDERED: HYDROmorphone 2 MG/ML VIAL ONE (10:04)
[2022-02-04] MEDS ORDERED: Dexmedetomidine 200 MCG/2 ML VIAL ONE (10:05)
[2022-02-04] MEDS ORDERED: Sodium Chloride 0.9% 100 ML ONE (10:14)
[2022-02-04] MEDS ORDERED: CEFAZOLIN 2 GM VIAL ONE (10:14)
[2022-02-04] MEDS ORDERED: ePHEDrine 50 MG/ML VIAL ONE (10:22)
[2022-02-04] MEDS ORDERED: Rocuronium Bromide 10 MG/ML (10ML VIAL) ONE (10:22)
[2022-02-04] MEDS ORDERED: PROPOFOL 200 MG/20 ML VIAL ONE (10:22)
[2022-02-04] MEDS ORDERED: Lidocaine 1% MPF 2 ML VIAL ONE ×2 (10:22)
[2022-02-04] MEDS ORDERED: Dexamethasone 20 MG/5 ML VIAL ONE (10:22)
[2022-02-04] MEDS ORDERED: Albuterol Sulfate HFA (OR ONLY) ONE (10:22)
[2022-02-04] MEDS ORDERED: Ondansetron PF 4 MG/2 ML Vial ONE (10:22)
[2022-02-04] MEDS ORDERED: Milk Of Magnesia 30 ML UDCUP PO PRN (10:32)
[2022-02-04] MEDS ORDERED: HYDROcodone/Acetaminophen 10/325 mg Tablet PO PRN (10:32)
[2022-02-04] MEDS ORDERED: Ondansetron PF 4 MG/2 ML Vial IVP PRN (10:32)
[2022-02-04] MEDS ORDERED: Mag-Al 1200 mg/1200 mg/30 ML UDCUP PO PRN (10:32)
[2022-02-04] MEDS ORDERED: Cyclobenzaprine 10 MG TAB PO PRN (10:32)
[2022-02-04] MEDS ORDERED: Promethazine 25 MG TAB PO PRN (10:32)
[2022-02-04] MEDS ORDERED: Albuterol Sulfate 2.5 mg/3 ml Neb NEB PRN (10:34)
[2022-02-04] MEDS ORDERED: Promethazine HCl 25 MG/ML VIAL IVPB PRN (11:02)
[2022-02-04] MEDS ORDERED: HYDROmorphone 2 MG/ML VIAL SLOW IVP PRN (11:02)
[2022-02-04] MEDS ORDERED: Promethazine HCl 25 MG/ML VIAL IM PRN (11:02)
[2022-02-04] MEDS ORDERED: PACU-Morphine 4MG/ML VIAL SLOW IVP PRN (11:02)
[2022-02-04] MEDS ORDERED: Morphine Sulfate 2 MG/ML SYRINGE SLOW IVP PRN (11:02)
[2022-02-04] MEDS ORDERED: Ondansetron HCl/PF 4 MG/2 ML Vial IVP PRN (11:02)
[2022-02-04] MEDS ORDERED: SUGAMMADEX SODIUM 200 MG/2 ML VIAL ONE ×2 (11:12→11:52)
[2022-02-04] MEDS ORDERED: Morphine 4 MG/ML VIAL ONE (14:21)
[2022-02-04] MEDS: CEFAZOLIN 2 GM in Sodium Chloride 0.9% 100 ML IVPB SCH ×3 (15:11→17:05)
[2022-02-04 15:25] VITALS: BMI 32.8
[2022-02-04] MEDS: Pregabalin 50 MG CAP PO SCH ×2 (15:44→22:16)
[2022-02-04] MEDS: Sodium Chloride 0.9% 1,000 ML IV SCH (15:44)
[2022-02-04] MEDS: Baclofen 10 MG TAB PO SCH ×2 (15:44→22:13)
[2022-02-04] MEDS: HYDROcodone/Acetaminophen 10/325 mg Tablet PO PRN ×2 (15:56→22:15)
[2022-02-04] MEDS: Morphine 2 MG/ML VIAL SLOW IVP PRN (20:01)
[2022-02-05] MEDS: CEFAZOLIN 2 GM in Sodium Chloride 0.9% 100 ML IVPB SCH (02:04)
[2022-02-05] MEDS: Sodium Chloride 0.9% 1,000 ML IV SCH (02:36)
[2022-02-05] MEDS: HYDROcodone/Acetaminophen 10/325 mg Tablet PO PRN (02:39)
[2022-02-05 04:18] VITALS: BP 118/60; TEMP 98.2
[2022-02-05] MEDS ORDERED: Tamsulosin HCl 0.4 MG CAP PO SCH (06:00)
[2022-02-05] MEDS: Morphine 2 MG/ML VIAL SLOW IVP PRN (07:40)
[2022-02-05] MEDS: Baclofen 10 MG TAB PO SCH (07:40)
[2022-02-05] MEDS: Pregabalin 50 MG CAP PO SCH (07:40)
[2022-02-05] MEDS ORDERED: Escitalopram Oxalate 20 mg Tablet PO SCH (09:00)
== END 2022-02-05 07:57 | disposition home or self-care (01) | DRG 473 ==
LOC: SURG A 02-04 07:38 → MSONC 02-04 15:02
PROVIDERS: ADMIT Neurological Surgery; ATTEND Neurological Surgery
PROC: 0RB30ZZ Excision of Cervical Vertebral Disc, Open Approach (ICD-10-PCS; principal; 2022-02-04)
PROC: 0RP104Z Removal of Internal Fixation Device from Cervical Vertebral Joint, Open Approach (ICD-10-PCS; 2022-02-04)
PROC: 0RG10A0 Fusion of Cervical Vertebral Joint with Interbody Fusion Device, Anterior Approach, Anterior Column, Open Approach (ICD-10-PCS; 2022-02-04)
DX: M47.812 Spondylosis without myelopathy or radiculopathy, cervical region (principal); G89.29 Other chronic pain
CPT/HCPCS: 76000; C1713; J0690; J1100; J1170; J2270; J2405; J2704; J3490; J7050

== ENCOUNTER 2022-01-16 11:35 | Outpatient (CLI) | payer OTHER ==
[2022-01-16 13:00] LABS: Hemoglobin 14.4 g/dL (13.5-17.5); Mean Corpuscular HGB CONC 35.6 g/dL (32.0-36.0); Mean Corpuscular Hemoglobin 31.2 pg (27.0-33.0); Mean Corpuscular Volume 87.4 fl (81.2-95.1); Mean Platelet Volume 9.9 fl (7.4-10.4); Platelet Count 267 10x3/uL (150-450); Red Blood Cell (RBC) Count 4.62 10x6/uL (4.32-5.72)
[2022-01-16 13:12] LABS: Anion Gap 15 mmol/L (10-20); BUN (Urea Nitrogen) 11 mg/dL (8.4-25.7); Calc. Creatinine Clearance 0 mL/min (70-130); Calcium 8.8 mg/dL (7.8-10.44); Carbon Dioxide 25 mmol/L (22-29); Chloride 103 mmol/L (98-107); Estimated GFR 104; Glucose 84 mg/dL (70-105); Potassium 3.9 mmol/L (3.5-5.1); Sodium 139 mmol/L (136-145)
== END 2022-01-16 11:36 | disposition home or self-care (01) ==
LOC: LABBT 11:35
PROVIDERS: ATTEND Neurological Surgery
DX: Z01.818 Encounter for other preprocedural examination (principal); M54.12 Radiculopathy, cervical region; Z20.822 Contact with and (suspected) exposure to COVID-19
CPT/HCPCS: 80048; 85027; 87811; 93005; 93010

== ENCOUNTER 2022-01-31 11:07 | Outpatient (CLI) | payer OTHER | END 2022-01-31 11:08 | disposition home or self-care (01) | LOC: LABBT 11:07 | PROVIDERS: ATTEND Neurological Surgery | DX: Z20.822 Contact with and (suspected) exposure to COVID-19 (principal) | CPT/HCPCS: 87811 ==

== ENCOUNTER 2022-02-26 12:38 | Outpatient (CLI) | payer OTHER | END 2022-02-26 12:39 | disposition home or self-care (01) | LOC: TBSIIMAG 12:38 | PROVIDERS: ATTEND Neurological Surgery | DX: M54.12 Radiculopathy, cervical region (principal); Z98.1 Arthrodesis status | CPT/HCPCS: 72040 ==

== ENCOUNTER 2022-06-04 14:11 | Outpatient (CLI) | payer OTHER | END 2022-06-04 14:12 | disposition home or self-care (01) | LOC: TBSIIMAG 14:11 | PROVIDERS: ATTEND Neurological Surgery | DX: M50.30 Other cervical disc degeneration, unspecified cervical region (principal); M47.812 Spondylosis without myelopathy or radiculopathy, cervical region; M25.78 Osteophyte, vertebrae; Z98.890 Other specified postprocedural states | CPT/HCPCS: 72040 ==

== ENCOUNTER 2022-06-24 13:57 | Outpatient (CLI) | payer OTHER | END 2022-06-24 13:58 | disposition home or self-care (01) | LOC: TBSIIMAG 13:57 | PROVIDERS: ATTEND Orthopaedic Surgery Sports Medicine | DX: M75.102 Unspecified rotator cuff tear or rupture of left shoulder, not specified as traumatic (principal); M19.012 Primary osteoarthritis, left shoulder ==

== ENCOUNTER 2023-09-20 17:38 | Emergency (ER) | payer OTHER ==
[2023-09-20] MEDS ORDERED: Morphine 4 MG/ML VIAL ONE ×3 (18:24→21:41)
[2023-09-20] MEDS ORDERED: Ondansetron PF 4 MG/2 ML Vial ONE (18:24)
[2023-09-20] MEDS ORDERED: Ketorolac Tromethamine 30 MG (1 mL) VIAL ONE (20:12)
== END 2023-09-20 21:51 | disposition home or self-care (01) ==
LOC: ERS 17:38
DX: S32.020A Wedge compression fracture of second lumbar vertebra, initial encounter for closed fracture (principal); S00.31XA Abrasion of nose, initial encounter; I10 Essential (primary) hypertension; F17.210 Nicotine dependence, cigarettes, uncomplicated; W01.10XA Fall on same level from slipping, tripping and stumbling with subsequent striking against unspecified object, initial encounter
CPT/HCPCS: 70450; 72125; 72131; 96374; 96375; 96376; J1885; J2270; J2405

== ENCOUNTER 2023-10-20 15:22 | Outpatient (CLI) | payer OTHER | END 2023-10-20 15:23 | disposition home or self-care (01) | LOC: BICRAD 15:22 | PROVIDERS: ATTEND Neurological Surgery | DX: M54.2 Cervicalgia (principal); M54.50 Low back pain, unspecified; S22.089A Unspecified fracture of T11-T12 vertebra, initial encounter for closed fracture; M47.812 Spondylosis without myelopathy or radiculopathy, cervical region; Z98.890 Other specified postprocedural states | CPT/HCPCS: 72040; 72100 ==

== ENCOUNTER 2024-02-23 15:08 | Outpatient (CLI) | payer OTHER | END 2024-02-23 15:09 | disposition home or self-care (01) | LOC: BICCT 15:08 | PROVIDERS: ATTEND Family Medicine | DX: Z12.2 Encounter for screening for malignant neoplasm of respiratory organs (principal); F17.210 Nicotine dependence, cigarettes, uncomplicated; J43.9 Emphysema, unspecified; J98.4 Other disorders of lung | CPT/HCPCS: 71271 ==